=== PATIENT | female | born 1995 | race Caucasian/White ===

== ENCOUNTER → 2018-03-08 | Outpatient (REF) | payer BC ==
[~2018-03-08] MED LIST: BIOT300T6 PO; FOLI200T11; MULT-1085 PO; NITR-105 PO; ONDA4TAB9 PO; OXYC-373 PO; PHEN200T32 PO; [UNRECOGNIZED DRUG - CODE] PO
[2018-03-08 15:51] LABS: PLATELET COUNT, AUTOMATED 346 K/uL (150-450)
== END ==
PROVIDERS: ATTEND Nurse Practitioner Family
DX: R07.9 Chest pain, unspecified (principal)
CPT/HCPCS: 82040; 82247; 82310; 82374; 82435; 82565; 82947; 84075; 84132; 84155; 84295; 84450; 84460; 84520; 85025; 85379

== ENCOUNTER → 2018-03-09 | Outpatient (REF) | payer BC ==
[2018-03-09 10:15] LABS: PLATELET COUNT, AUTOMATED 354 K/uL (150-450)
== END ==
PROVIDERS: ATTEND Nurse Practitioner Family
DX: R05 Cough (principal); J84.89 Other specified interstitial pulmonary diseases
CPT/HCPCS: 82040; 82247; 82310; 82374; 82435; 82565; 82947; 83605; 84075; 84132; 84155; 84295; 84450; 84460; 84520; 85025